=== PATIENT | female | born 1995 | race Caucasian/White ===

== ENCOUNTER 2022-04-19 15:39 | Emergency (ER) | payer MEDICAID, OTHER ==
[2022-04-19] MEDS ORDERED: LORazepam 0.5 MG Tab PO ONE (16:04)
[2022-04-19 17:32] LABS: ESTIMATED GFR > 60 mL/min (>60)
[2022-04-19 17:35] LABS: CORONAVIRUS COVID-19 NAA NEGATIVE (NEGATIVE)
[2022-04-19 17:37] LABS: ACETAMINOPHEN 0 ug/mL (10-30)
[2022-04-19 19:12] VITALS: BP 132/78; PULSE 67
== END 2022-04-19 19:12 | disposition home or self-care (01) ==
LOC: JD.ED 15:39
DX: R45.851 Suicidal ideations (principal); F41.8 Other specified anxiety disorders; F17.210 Nicotine dependence, cigarettes, uncomplicated; Z79.899 Other long term (current) drug therapy; Z20.822 Contact with and (suspected) exposure to COVID-19; Z86.16 Personal history of COVID-19
CPT/HCPCS: 0240U; 36415; 80053; 80143; 80179; 80306; 80307; 81025; 84443; 85007; 85027; 93005; 99285; A9270; 93010; 99284